=== PATIENT | male | born 1960 | race Caucasian/White ===

== ENCOUNTER 2019-07-01 16:01 | Emergency (ER) | payer BC ==
--- OUTSIDE RECORDS SUMMARY | 2019-07-01 16:07 | XMS REPORT | Continuity of Care Document ---
:1960 External Reference #:[id number] Author Name Lorraine Maxwell M.D. Address [address] [place] [address] Care Team Providers Name Role Phone Lorraine Maxwell M.D. 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 Onset: 07/24/2018 Social History Type Date Description Comments Sex Unknown Tobacco Use Start: Unknown Never Smoked Cigarettes ETOH Use Occasional 2-3x mixed drinks/vodka a week Tobacco Use Start: Unknown Patient has never smoked Recreational Drug Use Marijuana occas Smoking Status Reviewed: 05/28/19 Patient has never smoked Exercise Type/Frequency Exercises regularly elliptical 2x a week/active at work Allergies, Adverse Reactions, Alerts Active Allergies Reaction Severity Comments Date Aspirin facial swelling 09/02/2016 Medications Active Medications SIG Qnty Indications Ordering Provider Date Flonase 2 sprays each 15.800ml Lorraine Maxwell, 05/22/2018 50mcg/Act nostril every M.D. Suspension night at bedtime Omeprazole 1 by mouth every Unknown 20mg day Capsules DR Harris CPT Code Status Date Vaccine Lot # [id number] Given 04/18/2019 Influenza Vac, Quadrivalent, Slit Virus, Im Vital Signs Date Vital Result Comment 05/28/2019 4:02pm BP Systolic 140 mmHg BP Diastolic 88 mmHg BP Systolic Recheck 160 mmHg BP Diastolic Recheck 96 mmHg Heart Rate 72 /min Body Temperature 97.8 F Respiratory Rate 18 /min Height 69.25 inches 5'9.25" Weight 183.00 lb BMI (Body Mass Index) 26.8 kg/m2 09/18/2018 4:26pm BP Systolic 130 mmHg BP Diastolic 84 mmHg Heart Rate 66 /min Body Temperature 98.1 F Respiratory Rate 16 /min Height 71 inches 5'11" Weight 182.00 lb BMI (Body Mass Index) 25.4 kg/m2 Results Description No Information Available Procedures Date Code Description Status 07/30/2018 11450830 Colonoscopy Completed 07/25/2018 32007207 Colonoscopy Completed Medical Devices Description No Information Available Encounters Description No Information Available Assessments Date Code Description Provider 05/28/2019 Z00.00 Encounter for general adult medical examination Lorraine Maxwell M.D. without abnormal findings 05/28/2019 I10 Essential (primary) hypertension Lorraine Maxwell M.D. 05/28/2019 K42.9 Umbilical hernia without obstruction or gangrene Lorraine Maxwell M.D. 05/28/2019 K64.9 Unspecified hemorrhoids Lorraine Maxwell M.D. Plan of Treatment 05/28/2019 - Lorraine Maxwell M.D.Z00.00 Encounter for general adult medical examination without abnormal findingsComments:Encourage an active and healthy lifestyle with proper eating habits including fruits, vegetables, 6-8 glasses of water a day and monitoring portion size. Recommend 30 minutes of daily physical activityincluding walking, aerobic exercise, sports, yoga or dance. Any activity is better than no activity.Recommend routine eye and dental exams. Next physical is due in 1-2 years. Recommend annual influenza [id number] Essential (primary) hypertensionComments:The patient will continue to monitor blood pressure and let me know the blood pressure results if there are readings persistently above 140/90. Goal blood pressure is less than 130/80. Recommend low salt/cardiac diet such as the Mediterranean diet and routine exercise at least 30 minutes a day. message in 1 week with BP results twice a dayFollow up:3moK42.9 Umbilical hernia without obstruction or gangreneComments:discussed warning signs and symptoms and when operative management ectksfqzoikG25.9 Unspecified hemorrhoidsComments:stool softeners, increase fiber and water; sitz baths, hemorrhoidal cream/suppository for discomfort ; discussed if worsening bleeding or pain to call the officeAllComments:Medication Management Patient Understands medications he's taking? Yes No Are there Barriersto Adherence? Yes No Has the patient been asked about herbal supplements and therapies, and OTC meds? Yes No Functional Status Description No Information Available Mental Status Description No Information Available Referrals Description No Information Available
[2019-07-01 16:14] VITALS: BP 172/99
--- NOTE | 2019-07-01 17:10 | UC ---
Skin Complaint HPI - History of Current Complaint Chief Complaint: UCGeneralIllness Time Seen by Provider: 07/01/19 16:54 Stated Complaint: SOFT TISSUE Pain Intensity: 5 - Allergy/Home Medications Allergies/Adverse Reactions: Allergies Allergy/AdvReac Type Severity Reaction Status Date / Time aspirin Allergy Intermediate Swelling Verified 07/01/19 16:15 Of Face,Lips,& Throat Home Medications: Home Medications Loratadine [Claritin] 10 mg PO DAILY WITH MEAL 07/01/19 [History Confirmed 07/01] PMH/Surg Hx/FS Hx/Imm Hx - Surgical History Surgical History: None - Social History Alcohol Use: Weekly Substance Use Type: Marijuana Smoking Status (MU): Never Smoked Tobacco Physical Exam Vital Signs: Initial Vital Signs Temp 98.4 F 07/01/19 16:10 Pulse 75 07/01/19 16:10 Resp 18 07/01/19 16:10 BP 172/99 07/01/19 16:10 Pulse Ox 100 07/01/19 16:10 Course/Dx - Course Course Of Treatment: Cellulitis noted of muscous membrane in nasal trubinate, left sided. - Augmentin twice daily x 7 days to help with infection - Over the counter medications for pain - Ice area as needed for pain - Do not forcefully blow nose to avoid trauma- gentle - No Nedi-pot or anything up nose - Return with increased pain, fever > 101, nose bleeding uncontrolled with pressure, headache, decreased swallowing. - Diagnoses Provider Diagnosis: Cellulitis of mucous membrane of nose Discharge ED - Discharge Plan Condition: Good Disposition: HOME Prescriptions: Amoxicillin/Clavulanate TAB* [Augmentin TAB 875*] 875 mg PO BID #14 tab Patient Education Materials: Cellulitis (ED) Referrals: Sergey Pompa MD [Primary Care Provider] - Additional Instructions: - Augmentin twice daily x 7 days to help with infection - Over the counter medications for pain - Ice area as needed for pain - Do not forcefully blow nose to avoid trauma- gentle - No Nedi-pot or anything up nose - Return with increased pain, fever > 101, nose bleeding uncontrolled with pressure, headache, decreased swallowing. - Billing Disposition and Condition Condition: GOOD Disposition: Home
== END 2019-07-01 17:12 | disposition home or self-care (01) ==
LOC: UCEAST 16:01
DX: J34.0 Abscess, furuncle and carbuncle of nose (principal); Z88.6 Allergy status to analgesic agent
CPT/HCPCS: 99212; G0463

== ENCOUNTER 2021-12-29 13:25 | Observation (INO) ==
[2021-12-29] MEDS: NS 0.9% 1000 ml BAG 1,000 ML IV SCH (15:45)
[2021-12-29 15:47] LABS: ABS Lymphocytes 0.6 10^3/ul (1.0-4.8); ABS Monocytes 0.5 10^3/ul (0-0.8); Hematocrit 19 % (42-52); Hemoglobin 5.9 g/dL (14.0-18.0); Lymphocyte % 11.6 %; Mean Corpuscular HGB Conc 31 g/dL (31-36); Mean Corpuscular Hemoglobin 25 pg (27-31); Mean Corpuscular Volume 80 fL (80-94); Mean Platelet Volume 7.1 fL (7.4-10.4); Platelet Count 349 10^3/uL (150-450); Red Blood Count 2.37 10^6 /uL (4.18-5.48); Red Cell Distribution Width 20 % (10-15); White Blood Count 5.1 10^3/uL (3.5-10.8)
[2021-12-29 16:35] LABS: Albumin 2.5 g/dL (3.2-5.2); Albumin/Globulin Ratio 1.1 (1-3); Calcium 7.6 mg/dL (8.6-10.3); Globulin 2.2 g/dL (2-4); Potassium 4.6 mmol/L (3.5-5.0); Total Bilirubin 0.2 mg/dL (0.2-1.0); Total Protein 4.7 g/dL (6.4-8.9); eGFR CKD-EPI 99.7 (>60)
[2021-12-29 16:55] LABS: Anisocytosis 2+; Polychromasia 1+
[2021-12-29 16:56] LABS: Hypochromasia 2+
[2021-12-29] MEDS: Iron Sucrose 200 MG in NS 0.9% 100 ml BAG 100 ML IVPB SCH (16:57)
[2021-12-29 16:58] LABS: Target Cells 1+
[2021-12-29] MEDS: methylPREDNISolone SOD SUCC 40 mg/ml 1 ml VIAL IV SCH (20:45)
[2021-12-29 22:56] LABS: Hematocrit 22 % (42-52); Hemoglobin 6.9 g/dL (14.0-18.0); Mean Corpuscular HGB Conc 32 g/dL (31-36); Mean Corpuscular Hemoglobin 26 pg (27-31); Mean Corpuscular Volume 81 fL (80-94); Mean Platelet Volume 7.1 fL (7.4-10.4); Platelet Count 350 10^3/uL (150-450); Red Blood Count 2.68 10^6 /uL (4.18-5.48); Red Cell Distribution Width 20 % (10-15); White Blood Count 8.4 10^3/uL (3.5-10.8)
[2021-12-30] MEDS: methylPREDNISolone SOD SUCC 40 mg/ml 1 ml VIAL IV SCH ×4 (00:31→17:42)
[2021-12-30] MEDS: NS 0.9% 1000 ml BAG 1,000 ML IV SCH ×3 (02:40→13:08)
[2021-12-30 06:52] LABS: Albumin 2.4 g/dL (3.2-5.2); C Reactive Protein 33.21 mg/L (<8.01); Calcium 7.8 mg/dL (8.6-10.3); Globulin 2.4 g/dL (2-4); Potassium 4.5 mmol/L (3.5-5.0); Total Bilirubin 0.4 mg/dL (0.2-1.0); Total Protein 4.8 g/dL (6.4-8.9); eGFR CKD-EPI 106.6 (>60)
[2021-12-30 07:05] LABS: ABS Lymphocytes 0.9 10^3/ul (1.0-4.8); ABS Monocytes 0.5 10^3/ul (0-0.8); ABS Neutrophils 4.8 10^3/ul (1.5-7.7); Hematocrit 22 % (42-52); Hemoglobin 6.9 g/dL (14.0-18.0); Lymphocyte % 14.1 %; Mean Corpuscular HGB Conc 32 g/dL (31-36); Mean Corpuscular Hemoglobin 26 pg (27-31); Mean Corpuscular Volume 81 fL (80-94); Mean Platelet Volume 7.2 fL (7.4-10.4); Nucleated Red Blood Cells % 0.1; Platelet Count 322 10^3/uL (150-450); Red Cell Distribution Width 20 % (10-15); White Blood Count 6.2 10^3/uL (3.5-10.8)
[2021-12-30] MEDS: Iron Sucrose 200 MG in NS 0.9% 100 ml BAG 100 ML IVPB SCH (10:43)
[2021-12-30] MEDS: Hydrocortisone ENEMA 100 MG BTL PR SCH ×2 (10:43→22:29)
[2021-12-30] MEDS ORDERED: inFLIXimab-DYYB (Inflectra) 100 MG/10 ML VIAL IVPB ONE (13:19)
[2021-12-30] MEDS ORDERED: INFLIXIMAB DYYB IVPB ONE (17:00)
[2021-12-30] MEDS ORDERED: NS 0.9% IVPB ONE (17:00)
[2021-12-31 06:24] LABS: Hematocrit 24 % (42-52); Hemoglobin 7.7 g/dL (14.0-18.0); Mean Corpuscular HGB Conc 32 g/dL (31-36); Mean Corpuscular Hemoglobin 26 pg (27-31); Mean Corpuscular Volume 82 fL (80-94); Mean Platelet Volume 7.3 fL (7.4-10.4); Platelet Count 323 10^3/uL (150-450); Red Blood Count 2.97 10^6 /uL (4.18-5.48); Red Cell Distribution Width 20 % (10-15); White Blood Count 9.2 10^3/uL (3.5-10.8)
[2021-12-31 07:45] VITALS: BP 152/72
[2021-12-31] MEDS: Hydrocortisone ENEMA 100 MG BTL PR SCH (08:21)
[2021-12-31 09:37] LABS: ABS Monocytes 1.5 10^3/ul (0-0.8); ABS Neutrophils 5.7 10^3/ul (1.5-7.7); Lymphocyte % 21.6 %; Nucleated Red Blood Cells % 0.2
[2021-12-31 09:38] LABS: Anisocytosis 3+; Hypochromasia 2+; Microcytosis 1+; Polychromasia 2+
[2022-01-01] MEDS ORDERED: Iron Sucrose 200 MG in NS 0.9% 100 ml BAG 100 ML IVPB SCH (09:00)
== END 2021-12-31 10:40 | disposition home or self-care (01) ==
LOC: MED
PROVIDERS: ADMIT Internal Medicine Medical Oncology; ATTEND Internal Medicine Medical Oncology